=== PATIENT | female | born 1955 | race Caucasian/White ===

== ENCOUNTER 2017-01-07 09:39 | Day surgery (SDC) | payer OTHER ==
[~2017-01-07 09:39] MED LIST: CYAN1000P SQ; CYCL-36 PO; ERGO50000 PO; FLUO40CA PO; OMEP40CA2 PO; REST30CA PO
[2017-01-07] MEDS ORDERED: MUPIROCIN 2% OINT 1 APPLIC/GM SYR NASAL SCH (10:15)
[2017-01-07] MEDS ORDERED: Hold AM Insulin & AM Hypoglycemic medications in diabetic patients PRN (10:15)
[2017-01-07] MEDS ORDERED: CHLORHEXIDINE GLUCONATE 2 % 1 PACK (2 CLOTHS) TOPICAL SCH (10:15)
[2017-01-07] MEDS ORDERED: ceFAZolin 2 GM PREMIX 50 ML IV SCH (10:15)
[2017-01-07] MEDS ORDERED: POVIDONE IODINE 5% (ANTISEPSIS KIT) 4 APPLICATIONS EACH NARE SCH (10:15)
[2017-01-07] MEDS ORDERED: NS 1000 ML IV SCH (10:15)
[2017-01-07] MEDS ORDERED: NO Heparin, Lovenox, Coumadin at least 12 hours prior to procedure. PRN (10:15)
[2017-01-07] MEDS ORDERED: TOPA100T11 PO (10:34)
[2017-01-07] MEDS ORDERED: COLA100C PO (10:34)
[2017-01-07] MEDS ORDERED: PLAQ200T PO (10:34)
[2017-01-07] MEDS ORDERED: ASPI325T PO (10:34)
[2017-01-07] MEDS ORDERED: TEMA30CA PO (10:34)
[2017-01-07] MEDS ORDERED: OMEP40CA2 PO (10:34)
[2017-01-07] MEDS ORDERED: MELO-1 PO (10:34)
[2017-01-07] MEDS ORDERED: FLUO40CA PO (10:34)
[2017-01-07] MEDS ORDERED: XANA1TAB2 PO (10:34)
[2017-01-07] MEDS ORDERED: MIDAZOLAM HCL 2 MG/2 ML VIAL ONE (12:08)
--- NOTE | 2017-01-07 12:53 | MA ---
cc: EUGENE FORD MD, BETH A. MD DATE 01/07/2017 PROCEDURE PERFORMED Loop recorder insertion. REFERRING PHYSICIAN Dr. Eugene Ford PREPROCEDURE DIAGNOSIS TIA PROCEDURES PERFORMED 1. 15 minutes moderate IV sedation. 2. Loop recorder insertion. DESCRIPTION OF PROCEDURE After informed consent was obtained, 2 mg of Versed and 25 mcg of fentanyl was given for moderate IV sedation. Next, a [employer] LIN[employer] loop recorder was inserted subcutaneously in the left chest. The patient tolerated the procedure well without any apparent complications. Tachybrady pause and atrial fibrillation detection was enabled. The initial R-wave was 0.24 mV. The serial number was [id number]. MD NANDA Pabon/ELIZABETH /12:29 PM /12:44 PM
== END 2017-01-07 13:34 | disposition home or self-care (01) ==
LOC: HDOC 09:39 → HDIC 09:40 → HDOC 13:34
PROVIDERS: ATTEND Nuclear Medicine Nuclear Cardiology
DX: G45.9 Transient cerebral ischemic attack, unspecified (principal); I48.91 Unspecified atrial fibrillation; I47.1 Supraventricular tachycardia; I11.9 Hypertensive heart disease without heart failure; R00.2 Palpitations; K58.9 Irritable bowel syndrome, unspecified; E78.5 Hyperlipidemia, unspecified; L93.0 Discoid lupus erythematosus; M79.7 Fibromyalgia; M54.9 Dorsalgia, unspecified; G62.9 Polyneuropathy, unspecified; Z79.01 Long term (current) use of anticoagulants
CPT/HCPCS: 33282; C1764; J0690; J2250; J3010

== ENCOUNTER → 2017-01-17 | Day surgery (SDC) | payer OTHER ==
[~2017-01-17] MED LIST changes: +ASPI325T PO; +COLA100C PO; -CYAN1000P SQ; -CYCL-36 PO; -ERGO50000 PO; +MELO-1 PO; +PLAQ200T PO; +PROPOFOL 1000 MG/100 ML BTL IV ONE; -REST30CA PO; +TEMA30CA PO; +TOPA100T11 PO; +XANA1TAB2 PO
--- NOTE | 2017-01-17 13:16 | GIPROC ---
[facility] [address] [facility], [address] COLONOSCOPY PROCEDURE REPORT EXAM DATE: 01/17/2017 PATIENT NAME: Baljit Rai MR #: [id number] BIRTHDATE: 1955 ENDOSCOPIST: Nghia Jimenez MD ORDER #: [id number] RESIN REMOVER: Maciej Navarro RN STATUS: outpatient INDICATIONS: The patient is a 61 yr old female here for a colonoscopy due to recent episodes of diverticulitis PROCEDURE PERFORMED: Colonoscopy, incomplete MEDICATIONS: None and Per Anesthesia. PREP QUALITY: good ESTIMATED BLOOD LOSS: None CONSENT: The patient understands the risks and benefits of the procedure and understands that these risks include, but are not limited to: sedation, allergic reaction, infection, perforation and/or bleeding. Alternative means of evaluation and treatment include, among others: physical exam, x-rays, and/or surgical intervention. The patient elects to proceed with this endoscopic procedure. medical equipment was checked for proper function. Hand hygiene and appropriate measures for infection prevention was taken. After the risks, benefits and alternatives of the procedure were thoroughly explained, Informed consent was verified, confirmed and timeout was successfully executed by the treatment team. A digital exam revealed no abnormalities of the rectum The EC-3890Li ([id number]), EC-3490Li ([id number]), and EG-[id number] ([id number]) endoscope was introduced through the anus and advanced to the sigmoid colon. The instrument was then slowly withdrawn as the colon was fully examined. COLON FINDINGS: Severe diverticulosis was noted in the sigmoid colon. The colon mucosa was otherwise normal. Retroflexed views revealed no abnormalities The scope was then completely withdrawn from the patient and the procedure terminated. ADVERSE EVENTS: There were no complications. IMPRESSIONS: 1. Severe diverticulosis was noted in the sigmoid colon 2. The colon mucosa was otherwise normal 3. Retroflexed views revealed no abnormalities 4. Revealed no abnormalities of the rectum RECOMMENDATIONS: 1. Xray for Barium enema 2. Follow-up: [facility] Clinic 3 week(s) 3. Consider CRS for eval of recurrent diverticulitis 4. High fiber diet. Avoid nuts, seeds, and popcorn. Chew your food well. RECALL: Return 1 year Colonoscopy to be done if surgery is done and sigmoidectomy is performed Nghia Jimenez MD eSigned: Nghia Jimenez MD 01/17/2017 1:16 PM cc: Rickey Mujica M.D and Marily Monaco [facility]
== END | disposition home or self-care (01) ==
LOC: ESDC 11:07
PROVIDERS: ATTEND Internal Medicine Gastroenterology
DX: K57.90 Diverticulosis of intestine, part unspecified, without perforation or abscess without bleeding (principal)
CPT/HCPCS: 00810; 45330; J3010